=== PATIENT | male | born 1970 | race Caucasian/White ===

== ENCOUNTER 2023-09-15 07:16 | Inpatient (IN) | payer OTHER, SELFPAY ==
[2023-09-15] VITALS (8 sets, daily range): BP systolic 135–170; BP diastolic 67–93; PULSE 76–103; RESP 14–20; TEMP 36.4–38.1; O2SAT 95–98; BMI 32.3; BMI 32.6
--- NOTE | ~2023-09-15 | CT_ITS ---
EXAMINATION: CT ANGIOGRAM OF THE CHEST WITH AND WITHOUT CONTRAST (CT PULMONARY ANGIOGRAM FOR PE) CLINICAL INFORMATION: Reason for Exam cp COMPARISON: None available. TECHNIQUE: Prior to contrast administration, noncontrast localization images were obtained. Subsequently, multidetector volumetric imaging was performed from the thoracic inlet to below the diaphragms following the administration of 80 mL Omnipaque 350 intravenous contrast. No contrast reaction reported Sagittal, coronal, and MIP oblique sagittal reformatted images were obtained on the CT workstation, uploaded to PACS, and reviewed. This CT examination was performed using dose optimization techniques as appropriate, variously including the following: *Automated exposure control *Adjustment of mA and/or kV according to patient size (this includes techniques or standardized protocols for targeted exams where dose is matched to indication/reason for exam; i.e. extremities or head) *Use of iterative reconstruction technique Total exam dose-length product 358 mGy-cm FINDINGS: QUALITY OF STUDY/CONTRAST BOLUS: Satisfactory. PULMONARY ARTERIES: No pulmonary emboli. THORACIC AORTA: No aneurysm. LUNG: There is a left lower lobe consolidation consistent infiltrate. Rest of lungs are clear and expanded. Minimal atelectatic changes seen in right lung base. PLEURA: No pleural effusion or pneumothorax. MEDIASTINUM: Normal heart size. No pericardial effusion. No hilar or mediastinal lymphadenopathy. No evidence of septal bowing or right heart strain. CORONARY ARTERY CALCIFICATION: None visualized on this study. CHEST WALL/AXILLA: No axillary or internal mammary lymphadenopathy. OSSEOUS STRUCTURES: No aggressive lytic or sclerotic process seen. UPPER ABDOMEN: Visualized liver and spleen is unremarkable. No reflux of contrast into the hepatic veins to suggest elevated right heart pressures. CT/CT angio chest PE protocol IMPRESSION: No evidence of PE. No evidence of aortic aneurysm or dissection. Large left lower lobe consolidation. VTE: negative
--- NOTE | ~2023-09-15 | XR_ITS ---
EXAMINATION: XR CHEST CLINICAL INFORMATION: Cough COMPARISON: None available. TECHNIQUE: 2 views of the chest were obtained. FINDINGS: Slight retrocardiac radiopacity which may reflect atelectasis versus evolving infectious/inflammatory etiology. No pneumothorax. Trachea is midline. Cardiac mediastinal silhouette is not enlarged. No large pleural effusion. Osseous structures are intact. Soft tissues are unremarkable. XR/XR chest 2V IMPRESSION: Slight retrocardiac radiopacity which may reflect atelectasis versus evolving infectious/inflammatory etiology.
--- NOTE | 2023-09-15 07:32 | ECG_ITS ---
Test Reason : chest tightness Blood Pressure : / mmHG Vent. Rate : 080 BPM Atrial Rate : 080 BPM P-R Int : 134 ms QRS Dur : 088 ms QT Int : 346 ms P-R-T Axes : 047 066 026 degrees QTc Int : 399 ms Normal sinus rhythm Normal ECG No previous ECGs available Referred By: Generic ED Physician Electronically Signed By:Sukhi Ashley
[2023-09-15 08:21] LABS: COVID-19 Test Negative (Negative); IDNOW Serial# 08D9AD1C; IDNOW Serial# 152EDE1D; Influenza A Negative (Negative); Influenza B2 Negative (Negative)
--- NOTE | 2023-09-15 09:27 | ED.URI ---
HPI - URI/Sore Throat General Chief Complaint: Upper Respiratory Symptoms Stated Complaint: Chest tightness/Coughing up blood Time Seen by Provider: 09/15/23 07:43 History of Present Illness HPI Narrative: Patient is a 53-year-old male with no significant past medical history presents today with having coughing fever chest pain that is on the right chest worse with deep breath. Patient claims at 1st he was coughing up blood mixed with mucus. Now coughing up more blood. Concerned and came to the emergency department. Symptoms getting worse over the last 24-36 hours. There has been sick contacts at home. There has no leg swelling. There has no history of blood clots. Patient is from home. No nausea no vomiting. No abdominal pain. Positive chest pain worse with coughing worse with deep breath. No history of [place]. No history diabetes, hypertension, high cholesterol, smoking. No history of travel. Related Data Allergies Allergy/AdvReac Type Severity Reaction Status Date / Time No Known Allergies Allergy Verified 09/15/23 07:31 Review of Systems Review of Systems: Positive chest pain Yes all other systems are reviewed and are negative [facility] Past Medical History Attestation statement: The following information was validated with the patient. Social History Social History Advance Directives: No Advance Directives Information Provided: No Physical Exam Vital Signs: Vital Signs: Last Vital Signs Temp 98.8 F 09/15/23 14:26 Pulse 96 09/15/23 14:26 Resp 16 09/15/23 14:26 BP 149/91 H 09/15/23 14:26 Pulse Ox 95 09/15/23 14:26 O2 Del Method Room Air 09/15/23 14:26 BMI result Body Mass Index 32.3 Appearance: Alert. Oriented X3. No acute distress. Eyes: Pupils equal, round and reactive to light. ENT: Pharynx normal. Neck: Normal inspection. Neck supple. No lymph nodes noted. No crepitus CVS: Normal heart rate and rhythm. Pulses normal. Normal S1 and S2 Respiratory: No respiratory distress. Breath sounds normal. No Wheezing. No rales Abdomen: Soft and nontender. No rigidity. No distention. good BS x4 Skin: Skin warm and dry. Normal skin color. Normal skin turgor. Extremities: No lower extremity edema. Neurovascular intact to all extremities. No Lacerations. No Rash Neuro: Oriented X 3. No motor deficit. No sensory deficit. Moving all extermities. No slurred speech Medications Administered Discontinued Medications Generic Name Dose Route Start Last Admin Trade Name Karina PRN Reason Stop Dose Admin Acetaminophen 975 mg 09/15/23 13:05 09/15/23 13:11 Acetaminophen 325 Mg Tablet PO 09/15/23 13:06 975 mg ONCE ONE Administration Azithromycin 500 mg 09/15/23 14:10 09/15/23 14:23 Azithromycin 500 Mg Tablet PO 09/15/23 14:11 500 mg ONCE ONE Administration Sodium Chloride 2,979 mls @ 2,979 mls/hr 09/15/23 11:13 09/15/23 13:11 Ns 30 ml/kg infuse over 1 hr (2979 ml) 09/15/23 12:12 Infused IV Infusion .Q1H STA Ceftriaxone Sodium 1 gm/ 50 mls @ 100 mls/hr 09/15/23 11:13 09/15/23 12:15 Sodium Chloride IV 09/15/23 11:42 Infused ONCE ONE Infusion Iohexol 65 ml 09/15/23 10:55 09/15/23 11:00 Iohexol 350 Mg/Ml 100 Ml Infus..Btl IV 09/15/23 10:56 65 ml ONCE ONE Administration Medical Decision Making Medical Decision Making MDM Narrative: Patient is 53 years old presents today with having coughing up blood generalized malaise weakness. Has a fever. COVID and flu were negative. Tachycardic. Given IV fluid baseline labs were sent. Patient has chest pain that is worse with deep inspiration. Worse on the left side. Labs showed an elevated white count of 17 with a left shift significant bandemia 25% CTA of the chest was done. 30 cc per antibiotic was started. Patient's lactate came back at 1.5. Repeat focal exam for sepsis was done patient's symptoms seems to be improving. CT a of the chest showed a large pneumonia consistent with the white count. No active bleeding was noted. Case discussed with the hospitalist team. Patient to be admitted for further evaluation. During the entire time the O2 sat was above 95%. He is otherwise well. Differential Diagnosis Differential Diagnoses: The differential diagnosis associated with the presentation includes Pneumonia, flu Consult Healthcare Provider Management of the patient was discussed with: Hospitalist (Discussed with hospitalist about admission) Lab Data MDM Lab Attestation statement: I reviewed the patient's lab results. 09/15/23 10:00 09/15/23 10:00 Labs: Lab Results 09/15/23 09/15/23 09/15/23 Range/Units 07:51 10:00 11:26 WBC 16.9 H (4.8-10.8) X10*3/uL RBC 4.70 (4.60-5.80) X10*6/uL Hgb 14.5 (14.0-18.0) g/dl Hct 41.0 L (42.0-52.0) % MCV 87.2 (80.0-98.0) fL MCH 30.9 (27.0-33.0) pg MCHC 35.4 (31.0-36.0) g/dl RDW 12.4 (11.0-16.0) % Plt Count 192 (160-400) X10*3/uL MPV 9.5 (9.4-12.4) fL Immature Gran % (Auto) Cancelled Neut % (Auto) Cancelled Lymph % (Auto) Cancelled [place] % (Auto) Cancelled Eos % (Auto) Cancelled Baso % (Auto) Cancelled Lymph # (Auto) Cancelled [place] # (Auto) Cancelled Eos # (Auto) Cancelled Baso # (Auto) Cancelled Abs Immat Gran (auto) Cancelled Absolute Neuts (auto) Cancelled Absolute Nucleated RBC 0.000 (0.0-0.012) X10*3/uL Nucleated RBC % (auto) 0.0 (0.0-0.2) /100WBC Neutrophils % (Manual) 65 (45-73) % Band Neutrophils % 25 H (3-5) % Lymphocytes % (Manual) 4 L (20-40) % Atypical Lymphs % (Man) 2 (0-6) % Monocytes % (Manual) 3 (2-11) % Metamyelocytes % 1 % Abs Neuts (Manual) 15.2 H (2.0-8.3) X10*3/uL Lymphocytes # (Manual) 0.7 L (1.2-4.9) X10*3/uL Atyp Lymphs # (Manual) 0.3 x10*3/uL Monocytes # (Manual) 0.5 (0.1-1.2) X10*3/uL Metamyelocytes # 0.2 X10*3/uL Toxic Vacuolation PRESENT Platelet Estimate NORMAL (NORMAL) Plt Morphology Comment NORMAL RBC Morphology NORMAL Sodium 138 (135-145) mmol/L Potassium 4.0 (3.3-5.1) mmol/L Chloride 101 (96-108) mmol/L Carbon Dioxide 28 (22-29) mmol/L Anion Gap 13 (12-20) BUN 15 (9-16) mg/dL Creatinine 1.09 (0.5-1.4) mg/dL Estim Creat Clear Calc 92.1 Estimated GFR > 60 Random Glucose 112 (60-115) mg/dL Lactic Acid 1.5 (0.5-2.0) mmol/L Calcium 9.4 (8.4-10.2) mg/dL Troponin I High Sens < 2.7 (<3.5-35.0) ng/L COVID-19 (SHAYAN) Negative (Negative) COVID-19 Clin Com See Note Influenza Type A (CLARK) Negative (Negative) Influenza Type B (CLARK) Negative (Negative) Influenza A & B Note See Note Independent Interpretation I performed an independent interpretation of an: EKG (EKG showed a sinus pattern heart rate is 80 MN QRS QTC within normal limits is no acute ST segment elevation noted.) and CT Scan (CT scan of the chest shows a left lower lobe infiltrate) Radiology Impression Discussion of test interpretation with radiology: I have reviewed the radiologist's reading. Independent Historian Clinical information obtained from an independent historian. History obtained from or confirmed by: Spouse Discharge Plan Discharge Clinical Impression: Pneumonia Patient Disposition: Admitted As Inpatient
[2023-09-15 10:09] LABS: Hemoglobin 14.5 g/dl (14.0-18.0); Mean Corpuscular HGB Conc 35.4 g/dl (31.0-36.0); Mean Corpuscular Hemoglobin 30.9 pg (27.0-33.0); Mean Corpuscular Volume 87.2 fL (80.0-98.0); Mean Platelet Volume 9.5 fL (9.4-12.4); Platelet Count 192 X10*3/uL (160-400); Red Cell Distribution Width 12.4 % (11.0-16.0); White Blood Count 16.9 X10*3/uL (4.8-10.8)
[2023-09-15 10:32] LABS: Anion Gap 13 (12-20); Blood Urea Nitrogen 15 mg/dL (9-16); Calcium 9.4 mg/dL (8.4-10.2); Carbon Dioxide 28 mmol/L (22-29); Chloride 101 mmol/L (96-108); Creatinine Clr Calc Pharmacy 92.1; Estimated Glomerular Filt Rate > 60; Glucose Random 112 mg/dL (60-115); Sodium 138 mmol/L (135-145)
[2023-09-15 10:48] LABS: Troponin-I High Sensitivity < 2.7 ng/L (<3.5-35.0)
[2023-09-15] MEDS: iohexoL 350 MG/ML 100 ML INFUS..BTL 65 ML IV (11:00)
[2023-09-15 11:08] LABS: Neutrophils Percent Manual 65 % (45-73)
[2023-09-15 11:10] LABS: Atypical Lymph Absolute Manual 0.3 x10*3/uL; Atypical Lymphs Percent Manual 2 % (0-6); Band Neutrophils Percent 25 % (3-5); Lymphocytes Absolute Manual 0.7 X10*3/uL (1.2-4.9); Lymphocytes Percent Manual 4 % (20-40); Metamyelocytes Absolute 0.2 X10*3/uL; Metamyelocytes Percent 1 %; Monocytes Absolute Manual 0.5 X10*3/uL (0.1-1.2); Monocytes Percent Manual 3 % (2-11); Neutrophils Absolute Manual 15.2 X10*3/uL (2.0-8.3); RBC Morphology NORMAL
[2023-09-15 11:11] LABS: Platelet Estimate NORMAL (NORMAL); Platelet Morphology Comment NORMAL; Toxic Vacuolation PRESENT
[2023-09-15] MEDS: cefTRIAXone sodium 1 GM in 0.9 % Sodium Chloride 50 ML IV (11:44)
[2023-09-15 11:50] LABS: Lactic Acid 1.5 mmol/L (0.5-2.0)
--- NOTE | 2023-09-15 13:10 | PC.NURSE ---
PT FEBRILE, MEDICATED CHARTED, TOLERATING PO FLUID INTAKE
[2023-09-15] MEDS: Acetaminophen 325 MG TABLET 975 MG PO (13:11)
[2023-09-15] MEDS: Azithromycin 500 MG TABLET PO (14:23)
--- NOTE | 2023-09-15 15:16 | PM.IMHP ---
History of Present Illness Date of Service: 09/15/23 Attending physician on admission: Ravindra [facility] Chief Complaint: blood tinged sputum 53-year-old male without any significant past medical history presents to the office for evaluation of productive cough with blood-tinged sputum production. There is associated pleuritic chest pain but no retrosternal chest pressure, lightheadedness, shortness of breath, wheezing. He states he had a tickle in his throat about 3 years ago but symptoms worsened over the last 24-36 hours. Denies any sick contacts at home. Denies fevers, chills, sore throat, congestion, abdominal pain, nausea, vomiting, diarrhea. No mp hemotysis. No recent travel. Since arrival, patient has been febrile to 100.5 and tachycardic to 102, vitals otherwise stable. No hypoxia. There is a leukocytosis of 16.9 with 25% bandemia. Renal function and electrolyte levels normal. Negative for COVID-19, influenza. CXR showed slight retrocardiac radiopacity. Follow-up CTA of the chest negative for PE but shows large left lower lobe consolidation. In the ED, has been treated with 2.9 L IVF, IV ceftriaxone, and p.o. azithromycin. Review of Systems Review of Systems: General: No fevers, malaise, unintentional weight loss HEENT: No blurred vision, diplopia. No sore throat, nasal congestion, rhinorrhea, sinus pain, ear pain Cardiovascular: +pleuritic chest pain. No chest pressure, palpitations, or leg edema Respiratory: +cough, +blood tinged sputum. No shortness of breath, wheezing GI: No abdominal pain, nausea, vomiting, diarrhea, constipation, melena, hematochezia : No dysuria, hematuria, increased urinary frequency, decreased urinary output MSK: No myalgia, back pain Neuro: No headaches, weakness, paresthesias Skin: No rashes or lesions PMFSH Medical History (Updated 09/15/23 @ 15:25 by ALMA Nguyen) No pertinent past medical history Social History Advance Directives: No Advance Directives Information Provided: No Meds Allergies Allergy/AdvReac Type Severity Reaction Status Date / Time No Known Allergies Allergy Verified 09/15/23 07:31 Active Medications: Current Medications Acetaminophen (Acetaminophen 325 Mg Tablet) 650 mg PO Q6H PRN PRN Reason: Pain, Mild (Pain Scale 1-3) Azithromycin (Azithromycin 500 Mg Tablet) 500 mg PO Q24H VU Ceftriaxone Sodium 1 gm/ (Sodium Chloride) 50 mls @ 100 mls/hr IV Q24H VU Ondansetron HCl (Ondansetron Hcl 4 Mg/2 Ml Vial) 4 mg IVPUSH Q8H PRN PRN Reason: Nausea and Vomiting Senna (Sennosides 8.6 Mg Tablet) 17.2 mg PO BEDTIME PRN PRN Reason: Constipation Sodium Chloride (0.9 % Sodium Chloride Flush 3 Ml Syringe) 3 ml IVFLUSH QSHIFT VU Physical Exam Vital Signs and Narrative: Vital Signs: Last Vital Signs Temp 98.8 F 09/15/23 14:26 Pulse 96 09/15/23 14:26 Resp 16 09/15/23 14:26 BP 149/91 H 09/15/23 14:26 Pulse Ox 95 09/15/23 14:26 O2 Del Method Room Air 09/15/23 14:26 BMI result Body Mass Index 32.3 Constitutional - Awake and Alert, No apparent distress Eyes - PERRLA, EOMI Cardiovascular - S1S2, RRR, No edema Respiratory - Normal lung expansion, Normal respiratory effort, No respiratory distress, crackles LLL Gastrointestinal - NT / ND; +BS; No rebound or guarding Extremities - no calf tenderness bilaterally, no swelling Skin - Warm/Dry Neurological - Alert & oriented x3 Psychological - Appropriate affect Results Labs 09/15/23 10:00 09/15/23 10:00 Labs: Laboratory Results - last 24 hr 09/15/23 09/15/23 09/15/23 07:51 10:00 11:26 MCV 87.2 MCH 30.9 MCHC 35.4 RDW 12.4 Plt Count 192 MPV 9.5 Immature Gran % (Auto) Cancelled Neut % (Auto) Cancelled Lymph % (Auto) Cancelled [place] % (Auto) Cancelled Eos % (Auto) Cancelled Baso % (Auto) Cancelled Lymph # (Auto) Cancelled [place] # (Auto) Cancelled Eos # (Auto) Cancelled Baso # (Auto) Cancelled Abs Immat Gran (auto) Cancelled Absolute Neuts (auto) Cancelled Absolute Nucleated RBC 0.000 Nucleated RBC % (auto) 0.0 Neutrophils % (Manual) 65 Band Neutrophils % 25 H Lymphocytes % (Manual) 4 L Atypical Lymphs % (Man) 2 Monocytes % (Manual) 3 Metamyelocytes % 1 Abs Neuts (Manual) 15.2 H Lymphocytes # (Manual) 0.7 L Atyp Lymphs # (Manual) 0.3 Monocytes # (Manual) 0.5 Metamyelocytes # 0.2 Toxic Vacuolation PRESENT Platelet Estimate NORMAL Plt Morphology Comment NORMAL RBC Morphology NORMAL Anion Gap 13 Estim Creat Clear Calc 92.1 Estimated GFR > 60 Random Glucose 112 Lactic Acid 1.5 Calcium 9.4 Troponin I High Sens < 2.7 COVID-19 (SHAYAN) Negative COVID-19 Clin Com See Note Influenza Type A (CLARK) Negative Influenza Type B (CLARK) Negative Influenza A & B Note See Note Imaging Radiologist's Impressions: Impressions Chest X-Ray 09/15/23 07:45 IMPRESSION: Slight retrocardiac radiopacity which may reflect atelectasis versus evolving infectious/inflammatory etiology. Chest CTA 09/15/23 11:13 IMPRESSION: No evidence of PE. No evidence of aortic aneurysm or dissection. Large left lower lobe consolidation. VTE: negative Assessment and Plan (1) Pneumonia: Status: Acute (2) Sepsis: Status: Acute Plan 53-year-old male without any significant past medical history admitted for pneumonia with sepsis. #Acute LLL pneumonia with sepsis -CT chest shows large LLL consolidation -leukocytosis 16.9, 25% bandemia, tachycardic. Lactic acid normal, no end organ damage or hypotension -IV ceftriaxone and azithromycin (initiated 09/15) -strep pneumo antigen, Legionella antigen, sputum culture pending -symptomatic management -follow CBC, cultures dvt prophylaxis- early ambulation, scps full code pt requires inpt stay at least 2 midnights for management of acute pneumonia with sepsis requiring iv abx and close monitoring for decompensation to severe sepsis/shock Quality Stroke Does the patient have a stroke diagnosis?: No VTE Prior VTE?: No VTE Risk Level:: Medical - moderate - high VTE Device Contraindication: N/A - Device Ordered VTE Drug Contraindication: Treatment Not Indicated
--- NOTE | 2023-09-15 15:33 | PHA.MEDREC ---
Pharmacy Consult ? Medication Reconciliation Pharmacy has completed the medication reconciliation. Patient reports only advil prn. Althea Palma, ChiD
--- NOTE | 2023-09-15 16:50 | PC.NURSE ---
Addendum entered by Dariusz Mejias 09/15/23 16:51: MEDICATED PER MAR , PT RESTING QUIETLY CURRENTLY Original Note: PT WAS MEDICATED FOR LEFT LOWER LOBE PNEUMONIA ,NO RESP DIFFICULTY NOTED, HE DOES REPORT TIGHTNESS ON HIS LEFT CHEST/ LOWER RIBS.
[2023-09-15] MEDS: 0.9 % Sodium Chloride Flush 3 ML SYRINGE IVFLUSH ×2 (17:03→23:59)
[2023-09-15] MEDS: Acetaminophen 325 MG TABLET 650 MG PO (19:24)
--- NOTE | 2023-09-16 03:02 | PC.NURSE ---
0230- received call from [employer] for 1 of 2 blood cultures showing Gram + Cocci in pairs and short chains; see report. hospitalist on duty alerted via tiger text and acknowledged note with an ok response. pt stable already on po and IV abx relayed to md also. continue to monitor.
--- NOTE | 2023-09-16 07:00 | CA_ITS ---
Transthoracic Echocardiogram Patient (Last, First, Middle): Chang Tyson J Gender: Male Date of : 1970 Age: 53 Procedure Date: 09/16/2023 Procedure Type: Transthoracic Echocardiogram Location: S3E Height: 175.26 cm Weight: 99.79 kg BSA: 2.15 m2 Heart Rate: 71 bpm BP: 138 / 93 mmHg Suction Operator: SB Referring MD: Ravindra Barrett MD Symptoms: bacteremia Study Quality: Adequate ECG Rhythm: Sinus Conclusions: - Normal left ventricular size, thickness, systolic function, and wall motion. The visually estimated ejection fraction is between 55-60%. Diastolic function is normal for age. Normal GLS -18%. - Normal right ventricular cavity size and systolic function. - There is mild dilatation of the ascending aorta measuring 3.50 cm. Findings Left Ventricle Normal left ventricular size, thickness, systolic function, and wall motion. The visually estimated ejection fraction is between 55-60%. Diastolic function is normal for age. Normal GLS -18%. Right Ventricle Normal right ventricular cavity size and systolic function. Atria The left atrium is normal in size. The right atrium is normal in size. Aortic Valve Normal aortic valve structure and function. There is no aortic valve stenosis. There is no aortic valve regurgitation. Mitral Valve Normal mitral valve structure and function. There is trace mitral valve regurgitation. There is no mitral valve stenosis. Pulmonic Valve The pulmonic valve is likely normal. Tricuspid Valve Normal tricuspid valve structure. There is no tricuspid valve regurgitation. Tricuspid regurgitation envelope is inadequate for calculation of right ventricular systolic pressure. Normal right atrial pressure. Great Vessels There is mild dilatation of the ascending aorta measuring 3.50 cm. The visualized portions of the pulmonary artery and branches are normal. Venous The inferior vena cava is normal in size and collapses greater than 50% with inspiration. Pericardium/Pleural There is no evidence of pericardial effusion. Prior Study Comparison No prior study available for comparison. Measurements 2D Linear Measurements IVSd: 0.78 0.6-0.9/0.6-1.0 cm LVIDd: 5.13 3.9-5.3/4.2-5.9 cm LVIDd Index: 2.39 2.4-3.2/2.2-3.1 cm/m2 LVIDs: 3.40 2.0-3.6 cm LVPWd: 0.79 0.7-1.1 cm LA Diam: 3.80 2.7-3.8/3.0-4.0 cm LAIDs Index: 1.77 1.5-2.3 cm/m2 LV Mass: 171.55 67-162/88-224 g LV Mass Index: 79.79 43-95/49-115 g/m2 LVOT Diam: 2.30 3.0+(-)1.3 cm 2D Systolic Function EF 4C: 67.60 >55% EF 2C: 68.10 >55% EF BiP: 67.10 >55% Mitral Valve MV Pk E: 0.78 MV PK A: 0.54 MV Decel Time: 195.00 E/A: 1.40 E'Lateral: 11.70 E'Medial: 7.18 E/E' Med: 10.80 E/E' Lat: 6.60 PHT: 57.00 MVA PHT: 3.86 Decel [place]: 3.98 Aortic Valve AoV Pk Kevon: 1.34 AoV Pk Grad: 7.00 JENNIE: 4.12 LVOT LVOT Pk Kevon: 1.33 LVOT Mn Kevon: 0.90 LVOT VTI: 0.27 LVOT Pk Grad: 7.00 LVOT Mn Grad: 4.00 LVOT Diam: 2.30 LVOT Area: 4.15 Diastolic Function MV Pk E: 0.78 MV Pk A: 0.54 E/A: 1.40 E'Medial: 7.18 E/E' Med: 10.80 E' Laterial: 11.70 E/E' Lat: 6.60 Right Ventricle TAPSE (mm): 20.80 TVS' Kevon: 9.79 Tricuspid Valve RA Press: 3.00 Great Vessels Aorta Sinus of Valsalva: 3.50 2.0-3.5 cm Ao Asc: 3.50 2.1-3.4 cm Pulmonary Valve PV Pk Kevon: 0.85 Peak PV Grad: 3.00 Updated in Other Vendor System with Status of Final Sukhi Ashley MD electronically signed on 09/16/2023 2:50:05 PM with status of Final
[2023-09-16 07:34] LABS: MANUAL DIFF FLAG NO
[2023-09-16 07:45] LABS: Basophils Percent Auto 0.3 % (0-2); Eosinophils Absolute Auto 0.1 X10*3/uL (0.0-0.4); Eosinophils Percent Auto 0.4 % (0-4); Hematocrit 38.5 % (42.0-52.0); Hemoglobin 13.4 g/dl (14.0-18.0); Imm Gran Abs Auto 0.14 X10*3/uL (0.00-0.03); Imm Gran Pct Auto 1.2 % (0.0-0.4); Lymphocytes Absolute Auto 0.9 X10*3/uL (1.2-4.9); Lymphocytes Percent Auto 7.4 % (20-40); Mean Corpuscular HGB Conc 34.8 g/dl (31.0-36.0); Mean Corpuscular Hemoglobin 30.9 pg (27.0-33.0); Mean Corpuscular Volume 88.7 fL (80.0-98.0); Mean Platelet Volume 10.5 fL (9.4-12.4); Monocytes Absolute Auto 0.6 X10*3/uL (0.1-1.2); Neutrophils Absolute Auto 10.2 x10*3/uL (2.0-8.3); Neutrophils Percent Auto 85.7 % (45-73); Platelet Count 209 X10*3/uL (160-400); Red Blood Count 4.34 X10*6/uL (4.60-5.80); Red Cell Distribution Width 12.4 % (11.0-16.0); White Blood Count 11.9 X10*3/uL (4.8-10.8)
[2023-09-16 07:50] VITALS: BP 138/93; PULSE 75; RESP 16; TEMP 36.2; O2SAT 96
[2023-09-16] MEDS: 0.9 % Sodium Chloride Flush 3 ML SYRINGE IVFLUSH ×3 (07:53→23:56)
[2023-09-16] MEDS: Acetaminophen 325 MG TABLET 650 MG PO (07:53)
[2023-09-16 08:01] LABS: Anion Gap 13 (12-20); Blood Urea Nitrogen 10 mg/dL (9-16); Calcium 9.4 mg/dL (8.4-10.2); Carbon Dioxide 26 mmol/L (22-29); Chloride 104 mmol/L (96-108); Creatinine Clr Calc Pharmacy 99.8; Estimated Glomerular Filt Rate > 60; Glucose Random 94 mg/dL (60-115); Potassium 3.9 mmol/L (3.3-5.1); Sodium 139 mmol/L (135-145)
--- NOTE | 2023-09-16 09:19 | HO.PM.IMPN ---
Subjective Subjective Date of Service: 09/16/23 Interval History: She is feeling better, no oxygen, WBC down to 11 from 16, blood culture growing gram positive cocci Physical Exam Vital Signs: Vital Signs: Last Vital Signs Temp 97.2 F 09/16/23 07:50 Pulse 75 09/16/23 07:50 Resp 16 09/16/23 07:50 BP 138/93 H 09/16/23 07:50 Pulse Ox 96 09/16/23 07:50 O2 Del Method Room Air 09/16/23 07:50 BMI result Body Mass Index 32.6 General: AO X 3, no acute distress Resp: dec breath sound at left base CVS: S1,S2,RRR GI: +BS, NT, no distention Skin: No rash Neuro: motor grossly intact Psych: appropriate affect Objective Data Active Medications Acetaminophen (Acetaminophen 325 Mg Tablet) 650 mg PO Q6H PRN PRN Reason: Pain, Mild (Pain Scale 1-3) Last Admin: 09/16/23 07:53 Dose: 650 mg Documented By: MELANIE Azithromycin (Azithromycin 500 Mg Tablet) 500 mg PO Q24H VU Ceftriaxone Sodium 1 gm/ (Sodium Chloride) 50 mls @ 100 mls/hr IV Q24H VU Ondansetron HCl (Ondansetron Hcl 4 Mg/2 Ml Vial) 4 mg IVPUSH Q8H PRN PRN Reason: Nausea and Vomiting Senna (Sennosides 8.6 Mg Tablet) 17.2 mg PO BEDTIME PRN PRN Reason: Constipation Sodium Chloride (0.9 % Sodium Chloride Flush 3 Ml Syringe) 3 ml IVFLUSH QSHIFT [facility] Last Admin: 09/16/23 07:53 Dose: 3 ml Documented By: MELANIE Labs 09/16/23 05:34 09/16/23 05:34 Labs: Laboratory Results - last 24 hr 09/15/23 09/15/23 09/16/23 10:00 11:26 05:34 MCV 87.2 88.7 MCH 30.9 30.9 MCHC 35.4 34.8 RDW 12.4 12.4 Plt Count 192 209 MPV 9.5 10.5 Immature Gran % (Auto) Cancelled 1.2 H Neut % (Auto) Cancelled 85.7 H Lymph % (Auto) Cancelled 7.4 L [place] % (Auto) Cancelled 5.0 Eos % (Auto) Cancelled 0.4 Baso % (Auto) Cancelled 0.3 Lymph # (Auto) Cancelled 0.9 L [place] # (Auto) Cancelled 0.6 Eos # (Auto) Cancelled 0.1 Baso # (Auto) Cancelled 0.0 Abs Immat Gran (auto) Cancelled 0.14 H Absolute Neuts (auto) Cancelled 10.2 H Absolute Nucleated RBC 0.000 0.000 Nucleated RBC % (auto) 0.0 0.0 Neutrophils % (Manual) 65 Band Neutrophils % 25 H Lymphocytes % (Manual) 4 L Atypical Lymphs % (Man) 2 Monocytes % (Manual) 3 Metamyelocytes % 1 Abs Neuts (Manual) 15.2 H Lymphocytes # (Manual) 0.7 L Atyp Lymphs # (Manual) 0.3 Monocytes # (Manual) 0.5 Metamyelocytes # 0.2 Toxic Vacuolation PRESENT Platelet Estimate NORMAL Plt Morphology Comment NORMAL RBC Morphology NORMAL Anion Gap 13 13 Estim Creat Clear Calc 92.1 99.8 Estimated GFR > 60 > 60 Random Glucose 112 94 Lactic Acid 1.5 Calcium 9.4 9.4 Troponin I High Sens < 2.7 Microbiology Microbiology Results: Microbiology 09/15/23 11:26 Blood Culture - Preliminary Blood - Venous Prelim: GPC Gram Stain only Assessment and Plan (1) Sepsis: Status: Acute (2) Pneumonia: Status: Acute (3) Bacteremia: Status: Acute Plan 53-year-old male without any significant past medical history admitted for pneumonia with sepsis. #Acute LLL pneumonia with sepsis, #gram positive cocci bacteremia -CT chest shows large LLL consolidation -leukocytosis 16.9, 25% bandemia, tachycardic. Lactic acid normal, no end organ damage or hypotension -IV ceftriaxone and azithromycin (initiated 09/15), -Add Vanco for bacteremia, Echo -strep pneumo antigen, Legionella antigen, sputum culture pending -symptomatic management -follow CBC, cultures dvt prophylaxis- early ambulation, scps full code Sepsis, PNA, bacteremia--organism not yet known and therefore needs IV Abx Quality Stroke Does the patient have a stroke diagnosis?: No VTE Prior VTE?: No VTE Risk Level:: Medical - moderate - high VTE Device Contraindication: N/A - Device Ordered VTE Drug Contraindication: Treatment Not Indicated
--- NOTE | 2023-09-16 09:24 | MHC.CM.PN ---
pt ;vipul with s/o is working and independent dc plan home no servies
[2023-09-16] MEDS: vancomycin/NS 2,000 MG/500 ML PLAST..BAG 250 MG IV (10:31)
--- NOTE | 2023-09-16 12:49 | PHA.PROG ---
Admission Date/Time: September 15, 2023 15:11 Indication: Bacteremia Weight in k.2 kg Adjusted body weight in K.5 [place] body weight in K.7 Obesity Dosing Indication % IBW: Serum Creatinine - Last 168 Hours 09/15/23 09/16/23 10:00 05:34 Creatinine 1.09 1.01 Estimated CrCl and GFR - Last 168 Hours 09/15/23 09/16/23 10:00 05:34 Estim Creat Clear Calc 92.1 99.8 Estimated GFR > 60 > 60 Vancomycin Loading Dose: 2000 mg Current Vancomycin Dosing Regimen: 1250 mg Q12H Vancomycin Monitoring using AUC goal of 400 - 600 range with trough as surrogate marker: 545 Date and Time for next Vancomycin Level to be drawn: 09/17/23 @1999 Pharmacist Comments on Vancomycin Plan: Plan is to do more aggresive dosing x two doses, thats why there is a level the next day at 2000. Trying to get patient to goal AUC range as quick as possible considering the patients indication Vancomycin dosing will take advantage of [employer] as a clinical decision support tool that uses Bayesian modeling to calculate individual patient's pharmacokinetic parameters and forecast the patient's drug concentration time course with the target goal AUC 24 range of 400 - 600 mg/L/hr.
[2023-09-16] MEDS: cefTRIAXone sodium 1 GM in 0.9 % Sodium Chloride 50 ML IV (12:54)
[2023-09-16] MEDS: Azithromycin 500 MG TABLET PO (12:56)
[2023-09-16 15:14] VITALS: BP 136/88; PULSE 71; RESP 18; TEMP 37; O2SAT 96
[2023-09-16] MEDS: vancomycin HCL 1,250 MG in 0.9 % Sodium Chloride 250 ML 166.67 MG IV (21:18)
--- NOTE | 2023-09-16 22:57 | W.PM.IDCN ---
History of Present Illness Data of Consult Service Date: 09/16/23 Requesting physician: Ravindra [facility] Primary Care Provider: Unknown Physician HPI Reason for consult: pneumonia,bacteremia He presents with cough and fever for a day, He has right pleuritic chest pain. He has some blood streaking hemoptysis as well. He has no known immunodeficiency or illness. He has WBC of 17,000 with 25 bands. He has dense left lower lobe infiltrate with some bronchiectasis?small cavities. Blood culture 1/2 gram positive cocci in chains. Children have had influenza ?type last two weeks. Review of Systems Review of Systems: Yes all other systems are reviewed and are negative Respiratory: Respiratory: Reports hemoptysis PMFSH Past Medical History Medical History No pertinent past medical history Family History Family history: reviewed and not pertinent Social History Social History Household Members: Family Housing: House Do you presently have visiting nurse or other home services: No Patient Tobacco Use Status: Never used Tobacco Use of substances other than those prescribed or required for medical reasons: Yes Substance Use Type: Marijuana Substance Use Frequency: Occasionally Last Used Substance: Weeks (ago) Currently Displaying Signs/Symptoms of Drug Intoxication Withdrawal: No Any prior treatment program specific to substance use: No Have you been hit, kicked, punched, or otherwise hurt by someone within the past year? If so, by whom?: No Do you feel safe in your current relationship?: Yes Is there a partner from a previous relationship who is making you feel unsafe now?: No Are you made to feel afraid or neglected: No Advance Directives: No Advance Directives Information Provided: No Do you have thoughts of harming others: None Do you have a plan to hurt others: No Plan Recently lost weight without trying: No How much weight loss: Not applicable Eating poorly because of decreased appetite: No Nutrition screen score: 0 Nutrition Risks: No Nutritional Risk Poor oral hygiene: No service: No Meds Allergies Allergy/AdvReac Type Severity Reaction Status Date / Time No Known Allergies Allergy Verified 09/15/23 07:31 Active Medications: Current Medications Acetaminophen (Acetaminophen 325 Mg Tablet) 650 mg PO Q6H PRN PRN Reason: Pain, Mild (Pain Scale 1-3) Last Admin: 09/16/23 07:53 Dose: 650 mg Azithromycin (Azithromycin 500 Mg Tablet) 500 mg PO Q24H [facility] Last Admin: 09/16/23 12:56 Dose: 500 mg Ceftriaxone Sodium 1 gm/ (Sodium Chloride) 50 mls @ 100 mls/hr IV Q24H [facility] Last Infusion: 09/16/23 14:04 Dose: Infused Vancomycin HCl 1,250 mg/ (Sodium Chloride) 250 mls @ 166.667 mls/hr IV Q12H [facility] Last Infusion: 09/16/23 22:50 Dose: Infused Ondansetron HCl (Ondansetron Hcl 4 Mg/2 Ml Vial) 4 mg IVPUSH Q8H PRN PRN Reason: Nausea and Vomiting Pharmacy Consult (Consult Rx Vancomycin Dosing) 1 each MISCELLANE DAILY PRN PRN Reason: Consult order Senna (Sennosides 8.6 Mg Tablet) 17.2 mg PO BEDTIME PRN PRN Reason: Constipation Sodium Chloride (0.9 % Sodium Chloride Flush 3 Ml Syringe) 3 ml IVFLUSH QSHIFT [facility] Last Admin: 09/16/23 16:21 Dose: 3 ml Home Medications Medication Instructions Recorded Confirmed Last Taken Type ibuprofen 200 mg tablet (Advil) 400 mg PO Q6H PRN Pain 09/15/23 09/15/23 Unknown History Physical Exam Vital Signs: Vital Signs: Last Vital Signs Temp 98.6 F 09/16/23 15:14 Pulse 71 09/16/23 15:14 Resp 18 09/16/23 15:14 BP 136/88 09/16/23 15:14 Pulse Ox 96 09/16/23 15:14 O2 Del Method Room Air 09/16/23 15:14 BMI result Body Mass Index 32.6 Resp: Other: diminished breath sounds bases Results Labs 09/16/23 05:34 09/16/23 05:34 Labs: Short CBC 09/16/23 Range/Units 05:34 WBC 11.9 H (4.8-10.8) X10*3/uL Hgb 13.4 L (14.0-18.0) g/dl Hct 38.5 L (42.0-52.0) % Plt Count 209 (160-400) X10*3/uL BMP 09/16/23 05:34 Sodium 139 Potassium 3.9 Chloride 104 Carbon Dioxide 26 BUN 10 Creatinine 1.01 Calcium 9.4 Microbiology Microbiology Results: Microbiology 09/15/23 11:33 Blood - Venous Blood Culture - Preliminary No growth after 24 hours. 09/15/23 11:26 Blood - Venous Blood Culture - Preliminary Prelim: GPC Gram Stain only Assessment and Plan (1) Bacteremia: Status: Acute Likely bacteremic strep pneumonia No prior infections ,likely post flu (2) Sepsis: Status: Acute (3) Pneumonia: Status: Acute Plan Ceftriaxone and Zithromax or Levaquin 3-5 d and then po for total 10-14 days antibiotics. He will get HIV test (d/w patient).
[2023-09-16 23:49] VITALS: BP 131/90; PULSE 71; RESP 16; TEMP 36.9; O2SAT 95
[2023-09-17 05:35] LABS: Hematocrit 38.5 % (42.0-52.0); Hemoglobin 13.5 g/dl (14.0-18.0); Mean Corpuscular HGB Conc 35.1 g/dl (31.0-36.0); Mean Corpuscular Hemoglobin 30.6 pg (27.0-33.0); Mean Corpuscular Volume 87.3 fL (80.0-98.0); Mean Platelet Volume 9.8 fL (9.4-12.4); Platelet Count 245 X10*3/uL (160-400); Red Blood Count 4.41 X10*6/uL (4.60-5.80); Red Cell Distribution Width 12.2 % (11.0-16.0); White Blood Count 7.7 X10*3/uL (4.8-10.8)
[2023-09-17 05:48] LABS: Creatinine Clr Calc Pharmacy 92.5; Estimated Glomerular Filt Rate > 60
[2023-09-17 06:08] LABS: HIV AB/AG Nonreactive (Nonreactive); HIV Num 1 0.05 S/CO (0.00-0.99)
[2023-09-17 07:45] VITALS: BP 151/96; PULSE 57; RESP 16; TEMP 36.7; O2SAT 95
--- NOTE | 2023-09-17 09:42 | PM.DS ---
DS: Providers Provider Date of Service: 09/17/23 Date of admission: 09/15/23 15:11 Primary care physician: Unknown Physician Consults: 09/16/23 09:37 Consult to Infectious Diseases Routine Consulting Provider: [facility] Infectious Disease Reason for consultation: Bacteremia Has provider been notified: No DS: Diagnosis Discharge Diagnosis (1) Bacteremia: Status: Acute (2) Sepsis: Status: Resolved (3) Pneumonia: Status: Acute DS: Summary Hospital Course Hospital Course: Chief Complaint: blood tinged sputum 53-year-old male without any significant past medical history presents to the office for evaluation of productive cough with blood-tinged sputum production. There is associated pleuritic chest pain but no retrosternal chest pressure, lightheadedness, shortness of breath, wheezing. He states he had a tickle in his throat about 3 years ago but symptoms worsened over the last 24-36 hours. Denies any sick contacts at home. Denies fevers, chills, sore throat, congestion, abdominal pain, nausea, vomiting, diarrhea. No mp hemotysis. No recent travel. Since arrival, patient has been febrile to 100.5 and tachycardic to 102, vitals otherwise stable. No hypoxia. There is a leukocytosis of 16.9 with 25% bandemia. Renal function and electrolyte levels normal. Negative for COVID-19, influenza. CXR showed slight retrocardiac radiopacity. Follow-up CTA of the chest negative for PE but shows large left lower lobe consolidation. In the ED, has been treated with 2.9 L IVF, IV ceftriaxone, and p.o. azithromycin. hospital course: Patient presented with a cough with blood-tinged sputum, pleuritic chest pain. Workup revealed leukocytosis of 16,000. Chest x-ray shows retrocardiac infiltrate, a CT of the chest ruled out PE but showed a large left lower lobe pneumonia. He was initiated on IV ceftriaxone and azithromycin for community-acquired pneumonia with sepsis. He has had a rapid recovery and was feeling better by the next day, WBC going down, no hypoxa, however blood cultures show 1/2 g positive cocci and was given 1 dose of vancomycin and Infectious Disease consultation recommended ceftriaxone and azithromycin or Levaqin IV for 3-5 days and transition to oral for a total of 10 to 14 days. As today, WBC is normal and will change to oral Levaquin for an additional 7 days Time Attestation Discharge coordination time: Greater than 30 minutes Quality: Safe Use of Opioids Does Pt have an Active Cancer Diagnosis on the Problem List?: No Quality: Stroke Does the patient have a stroke diagnosis?: No Physical Exam Vital Signs: Vital Signs: Last Vital Signs Temp 98.0 F 09/17/23 07:45 Pulse 57 09/17/23 07:45 Resp 16 09/17/23 07:45 BP 151/96 H 09/17/23 07:45 Pulse Ox 95 09/17/23 07:45 O2 Del Method Room Air 09/17/23 07:45 BMI result Body Mass Index 32.6 DS: Data Data Completed and Pending Labs on day of discharge: Laboratory Results - last 24 hr 09/17/23 05:13 WBC 7.7 RBC 4.41 L Hgb 13.5 L Hct 38.5 L MCV 87.3 MCH 30.6 MCHC 35.1 RDW 12.2 Plt Count 245 MPV 9.8 Absolute Nucleated RBC 0.000 Nucleated RBC % (auto) 0.0 Creatinine 1.09 Estim Creat Clear Calc 92.5 Estimated GFR > 60 HIV 1&2 Ab/P24 Ag 4thGn Nonreactive Preliminary micro results at discharge 09/15/23 11:33 Blood Culture - Preliminary Blood - Venous No growth after 24 hours. 09/15/23 11:26 Blood Culture - Preliminary Blood - Venous Prelim: GPC Gram Stain only Discharge Plan Discharge Anticipated Discharge Date/Time: 09/17/23 09:54 Patient Disposition: Home, Self-Care Discharge Diagnosis: Sepsis, community acquired pneumonia Referrals: Physician,Unknown J [Primary Care Provider] - 1 Week Discharge Medications: New levofloxacin 750 mg tablet 750 mg PO DAILY 7 Days Qty: 7 0RF Continued ibuprofen [Advil] 200 mg Tablet 400 mg PO Q6H PRN (Reason: Pain) Discharge Orders: Discharge Order (Routine); Ordered 09/17/23 Ordered By: Ravindra Barrett Diet: Advance to usual diet Activity on Discharge: As tolerated Stand Alone Forms: Patient Portal Discharge page, Work/School Release Print Language: Nigerien Care Plan Goals: Full recovery from pneumonia and sepsis Health Concerns: Sepsis due to pneumonia Plan of Treatment: Take Levaquin as directed and follow up with your Doctor in a week you will need repeat xray in 2 to 3 weeks Assessment: See above Patient Instructions: Pneumonia (DC) Discharge Date/Time: 09/17/23 14:23
[2023-09-17] MEDS: 0.9 % Sodium Chloride Flush 3 ML SYRINGE IVFLUSH (11:31)
[2023-09-17] MEDS: levoFLOXacin/D5W 750 MG/150 ML PIGGYBACK 100 MG IV (11:31)
--- NOTE | 2023-09-17 11:40 | MHC.CM.PN ---
Patient is discharged to home self care. Patient will arrange for transport home.
[2023-09-18 23:24] LABS: Strep Pneumo Ag urine Not Detected (Not Detected)
[2023-09-21 06:29] LABS: Legionella Ag Urine Not Detected (Not Detected)
== END 2023-09-17 14:23 | disposition home or self-care (01) | DRG 871 ==
LOC: HO.ED 15:21 → HO.EDOVER 16:04 → HO.S3 17:59
PROVIDERS: Internal Medicine; Admitting Provider Physician Assistant; Emergency Provider Emergency Medicine Emergency Medical Services; Visit Provider Internal Medicine
DX: A41.9 Sepsis, unspecified organism (principal); J18.9 Pneumonia, unspecified organism; R04.2 Hemoptysis; Z20.822 Contact with and (suspected) exposure to COVID-19
CPT/HCPCS: 36415; 71046; 71275; 80048; 82565; 83605; 84484; 85007; 85025; 85027; 87040; 87077; 87205; 87389; 87449; 87502; 87635; 87899; 93005; 93306; 93356; 99285; J0696; J1956; J3370; J3371; Q9967

== ENCOUNTER → 2023-09-15 07:32 | Outpatient (BNV) | payer OTHER, SELFPAY | PROVIDERS: Admitting Provider Physician Assistant; Emergency Provider Emergency Medicine Emergency Medical Services; Visit Provider Internal Medicine Cardiovascular Disease | DX: R07.9 Chest pain, unspecified (principal) | CPT/HCPCS: 93010 ==

== ENCOUNTER → 2023-09-15 07:57 | Outpatient (BNV) | payer OTHER, SELFPAY | PROVIDERS: Emergency Provider Emergency Medicine Emergency Medical Services; Visit Provider Physician Assistant | DX: R78.81 Bacteremia (principal); A41.9 Sepsis, unspecified organism; J18.9 Pneumonia, unspecified organism | CPT/HCPCS: 99223; 99232; 99239 ==

== ENCOUNTER 2023-09-15 15:11 | Outpatient (BNV) | payer OTHER, SELFPAY | END 2023-09-16 07:00 | PROVIDERS: Admitting Provider Physician Assistant; Emergency Provider Emergency Medicine Emergency Medical Services; Visit Provider Internal Medicine Cardiovascular Disease | DX: A41.9 Sepsis, unspecified organism (principal) | CPT/HCPCS: 93306 ==

== ENCOUNTER → 2023-09-15 15:11 | Outpatient (BNV) | payer OTHER, SELFPAY | PROVIDERS: Admitting Provider Physician Assistant; Emergency Provider Emergency Medicine Emergency Medical Services; Visit Provider Internal Medicine | DX: R78.81 Bacteremia (principal); A41.9 Sepsis, unspecified organism; J18.9 Pneumonia, unspecified organism | CPT/HCPCS: 99222 ==

== ENCOUNTER 2023-10-01 11:16 | Outpatient (REF) | payer OTHER, SELFPAY ==
--- NOTE | ~2023-10-01 | XR_ITS ---
EXAMINATION: XR CHEST CLINICAL INFORMATION: Follow up pneumonia. COMPARISON: Chest radiographs and CT angiography of the chest of 09/15/2023. TECHNIQUE: 2 views of the chest were obtained. FINDINGS: There is no gross pneumothorax. Heart size is normal. Bibasilar streaky opacities likely represent subsegmental atelectasis. Decreased left basilar opacity is characteristic. No significant pleural effusion. Mild degenerative changes in the thoracic spine. XR/XR chest 2V IMPRESSION: Bibasilar streaky opacities likely represent subsegmental atelectasis. Decreased left basilar opacity. Continued follow up to resolution recommended.
== END 2023-10-01 11:17 | disposition home or self-care (01) ==
LOC: HO.XRAY 11:16
PROVIDERS: Visit Provider Internal Medicine
DX: J18.9 Pneumonia, unspecified organism (principal)
CPT/HCPCS: 71046